=== PATIENT | female | born 1990 | race Hispanic/Latino ===

== ENCOUNTER → 2016-05-22 | Outpatient (CLI) | payer OTHER ==
--- NOTE | 2016-05-22 15:03 | RAD ---
EXAM DESCRIPTION: Abdomen radiography. CLINICAL HISTORY: Abdominal pain. COMPARISON: None. TECHNIQUE: One view. FINDINGS: Bowel gas pattern is non-obstructed. There is no obvious free intraperitoneal air. Visualized segments of the abdominal organs are unremarkable. No suspicious bone lesion or fracture is seen. IMPRESSION: Two stones overlying the left renal shadow are noted. They are linear. The largest measures approximately 6 mm x 1.5 mm in diameter. Electronically signed by: Martell Coelho MD 05/22/2016 15:02
== END ==
LOC: RAD 13:46
PROVIDERS: ATTEND Urology
DX: N20.2 Calculus of kidney with calculus of ureter (principal)

== ENCOUNTER → 2016-06-19 | Outpatient (CLI) | payer OTHER ==
--- NOTE | 2016-06-19 15:26 | CT ---
EXAM DESCRIPTION: Abdomen and pelvis CT. CLINICAL HISTORY: Renal stone followup COMPARISON: February 2016 TECHNIQUE: A noncontrast volumetric CT was acquired and displayed in multiplanar reconstructions. Note that the sensitivity of this exam is slightly diminished without contrast. FINDINGS: Left renal stones again noted. The largest measures 6 mm in diameter. The left UPJ stone has been removed or as passed. No evidence of obstruction on today's exam. Urinary bladder is unremarkable. IUD in place. The liver, spleen, bilateral adrenal glands and pancreas are stable. Small bowel is unremarkable. The appendix is normal. The colon is unremarkable. No inflammatory changes seen. Lung bases are clear. IMPRESSION: There is some variability of the number and size of left renal stones when compared to the prior. The largest on today's exam measures 6 mm in diameter. The left UPJ stone has been removed or has passed. No evidence of obstruction on today's study or ureteral stone on today's study. The right adnexal cyst has decreased considerably in size and is now difficult to visualize. It likely measures approximately 2 cm in diameter. On the prior study it measured 6.2 cm in diameter. The ground-glass opacity seen on the prior study have resolved. Electronically signed by: Martell Coelho MD 06/19/2016 15:24
== END ==
LOC: CT 08:30
PROVIDERS: ATTEND Urology
DX: N20.0 Calculus of kidney (principal)

== ENCOUNTER 2016-10-07 23:24 | Emergency (ER) | payer OTHER ==
[2016-10-07] MEDS ORDERED: ONDANSETRON ODT 8 MG TAB SL SCH (23:45)
[2016-10-07] MEDS ORDERED: ALUMINUM & MAGNESIUM HYDROXIDE 30 ML UD PO ONE (23:52)
[2016-10-08] MEDS ORDERED: KETOROLAC TROMETHAMINE INJ 30 MG/ML VIAL IM ONE (00:24)
[2016-10-08] MEDS ORDERED: SODIUM CHLORIDE 0.9% 1000ML 1,000 ML IVS ONE (00:24)
[2016-10-08] MEDS ORDERED: CIPROFLOXACIN 500 MG TAB PO ONE (00:25)
--- NOTE | 2016-10-08 00:54 | ED.PDOC ---
History of Present Illness - General Chief Complaint: Back Pain or Injury Stated Complaint: low back pain Time Seen by Provider: 10/07/16 23:36 Source: patient Exam Limitations: no limitations - History of Present Illness Initial Comments: The patient is a 26-year-old female presenting to the emergency room secondary to symptoms of abdominal discomfort starting this morning. Cramping type abdominal discomfort. Mild discomfort in her low back bilaterally. Possibly some mild frequency but no real dysuria. She has had kidney stones before and she has had urinary tract infections before. No definite constipation or diarrhea. She did have some mild nausea this morning but no real vomiting. She has had possibly a little more reflux symptoms today. She denies vaginal discharge or symptoms of recent yeast infection. Severity: moderate Improving Factors: nothing Worsening Factors: nothing Associated Symptoms: malaise, nausea/vomiting Allergies/Adverse Reactions: Allergies NO KNOWN ALLERGY Allergy (Verified 03/13/16 10:15) Home Medications: Ambulatory Orders Escitalopram Oxalate 10 mg PO DAILY 10/07/16 Zolpidem Tartrate [Ambien] 5 mg PO BEDTIME 10/07/16 Ciprofloxacin [Cipro] 500 mg PO BID #10 tab 10/08/16 Ondansetron [Zofran Odt] 4 mg PO Q4H PRN #10 tab 10/08/16 Review of Systems - Review of Systems Constitutional: States: malaise EENTM: States: no symptoms reported Respiratory: States: no symptoms reported Cardiology: States: no symptoms reported Gastrointestinal/Abdominal: States: see HPI Genitourinary: States: see HPI Musculoskeletal: States: see HPI, back pain Skin: States: no symptoms reported Neurological: States: no symptoms reported Endocrine: States: no symptoms reported All other Systems: No Change from Baseline Past Medical History (General) - Patient Medical History Hx Seizures: No Hx Stroke: No Hx Dementia: No Hx Asthma: No Hx of COPD: No Hx Cardiac Disorders: No Hx Congestive Heart Failure: No Hx Pacemaker: No Hx Hypertension: No Hx Thyroid Disease: No Hx Diabetes: No Hx Gastroesophageal Reflux: Yes Hx Renal Disease: No Hx Cancer: No Hx of HIV: No Hx Hepatitis C: No Surgical History: other - Vaccination History Hx Tetanus, Diphtheria Vaccination: Yes Hx Influenza Vaccination: Yes Hx Pneumococcal Vaccination: No Immunizations Up to Date: Yes - Social History Hx Tobacco Use: No Hx Alcohol Use: Yes - social Hx Substance Use: No Hx Depression: Yes Hx Physical Abuse: No Hx Emotional Abuse: No - Activities of Daily Living Hospice Agency (if applicable):: None - Female History Patient is a Female of Child Bearing Age (10 -59 yrs old): Yes Hx Last Menstrual Period: 02/01/13 Patient : No - IUD Expected Date of Delivery:: 11/13/13 Family Medical History - Family History Paternal Grandparents Living Status: Still Living Hx Family Stroke: Yes - Paternal grandfather has had a stroke Hx Family Diabetes: Yes Hx Family;Other: Paternal Grandmother has diabetes, unsure which type Paternal Hx Family Asthma: Yes Hx Family;Other: Father states he has asthma Maternal Grandparents Family History: No Known Hx Family Congestive Heart Failure: Yes - maternal grandfather Hx Family Hypertension: Yes - maternal grandmother Hx Family Diabetes: Yes - maternal grandmother Physical Exam - Physical Exam General Appearance: Alert, Comfortable, No apparent distress Eye Exam: bilateral normal Ears, Nose, Throat: hearing grossly normal, normal ENT inspection, normal pharynx Neck: non-tender, full range of motion, supple Respiratory: chest non-tender, lungs clear, normal breath sounds, no respiratory distress, no accessory muscle use Cardiovascular/Chest: normal peripheral pulses, regular rate, rhythm, no edema Peripheral Pulses: radial,right: 2+, radial,left: 2+, dorsalis pedis,right: 2+, dorsalis pedis,left: 2+ Gastrointestinal/Abdominal: non tender, soft Rectal Exam: deferred Back Exam: normal inspection, no CVA tenderness, no vertebral tenderness Extremity: normal range of motion, non-tender, normal inspection, no pedal edema , normal capillary refill Neurologic: alert, normal mood/affect, oriented x 3 Skin Exam: normal color Comments: Vital Signs - 24 hr 10/07/16 10/07/16 23:44 23:45 Temperature 98.1 F Pulse Rate [ 80 80 Left radial] Respiratory 18 18 Rate Blood Pressure 133/82 [Left Arm] O2 Sat by Pulse 96 Oximetry Progress - Progress Progress: 10/08/16 00:54 the patient is a 26-year-old female presenting to the emergency room secondary to abdominal symptoms likely related to hematuria. Source of hematuria is uncertain at this time as she does have a history of kidney stones and a urinary tract infection is certainly possible. The patient has received a liter of IV fluids to help with either. She has also received a dose of Toradol to help symptomatically. She can use Motrin a couple of times daily for the next day or 2 to help reduce discomfort. She does need to increase her fluid intake. She will be written for 5 days of oral ciprofloxacin in case this is coming from a urinary tract infection. If pain and symptoms worsen rather than improve, then she may require additional studies and further clinical evaluation. At this time a repeat CT scan for the possibility of a kidney stone is not warranted given the inherent risks. ER warnings were given. She should follow-up with her primary care doctor later this week. - Results/Orders Results/Orders: Laboratory Last Values Serum HCG, Qual Cancelled 10/07/16 23:52 Urine Color Yellow (Yellow) 10/07/16 23:50 Urine Appearance Sl cloudy (Clear) 10/07/16 23:50 Urine pH 7.0 (4.5-7.8) 10/07/16 23:50 Ur Specific [place] 1.020 (1.005-1.030) 10/07/16 23:50 Urine Protein Negative mg/dL 10/07/16 23:50 Urine Glucose (UA) Negative mg/dL (Negative) 10/07/16 23:50 Urine Ketones Negative mg/dL (NEGATIVE) 10/07/16 23:50 Urine Blood Moderate (Negative) H 10/07/16 23:50 Urine Nitrite Negative 10/07/16 23:50 Urine Bilirubin Negative (NEGATIVE) 10/07/16 23:50 Urine Urobilinogen 1.0 mg/dL (0.2-1.0) 10/07/16 23:50 Ur Leukocyte Esterase Negative (Negative) 10/07/16 23:50 Urine RBC 20-30 /hpf H 10/07/16 23:50 Urine WBC 1-3 /hpf 10/07/16 23:50 Ur Epithelial Cells 1-3 /hpf 10/07/16 23:50 Amorphous Sediment 1+ 10/07/16 23:50 Urine Bacteria Rare 10/07/16 23:50 Urine Mucus Trace 10/07/16 23:50 Urine HCG, Qual Negative 10/07/16 23:52 - EKG/XRAY/CT CT Ordered: No CT Interpretation Call Back: No Departure - Departure Clinical Impression: Hematuria Disposition: Discharge to Home or Self Care Condition: Fair Departure Forms: ED Discharge - Pt. Copy, Patient Portal Self Enrollment Instructions: DI for Hematuria Diet: bland diet Activity: increase activity as tolerated Referrals: Bree Schofield NP [Primary Care Provider] - 1-5 Days Prescriptions: Ciprofloxacin [Cipro] 500 mg PO BID #10 tab Ondansetron [Zofran Odt] 4 mg PO Q4H PRN #10 tab PRN Reason: Vomiting Home Medications: Ambulatory Orders Escitalopram Oxalate 10 mg PO DAILY 10/07/16 Zolpidem Tartrate [Ambien] 5 mg PO BEDTIME 10/07/16 Ciprofloxacin [Cipro] 500 mg PO BID #10 tab 10/08/16 Ondansetron [Zofran Odt] 4 mg PO Q4H PRN #10 tab 10/08/16 Additional Instructions: the patient is a 26-year-old female presenting to the emergency room secondary to abdominal symptoms likely related to hematuria. Source of hematuria is uncertain at this time as she does have a history of kidney stones and a urinary tract infection is certainly possible. The patient has received a liter of IV fluids to help with either. She has also received a dose of Toradol to help symptomatically. She can use Motrin a couple of times daily for the next day or 2 to help reduce discomfort. She does need to increase her fluid intake. She will be written for 5 days of oral ciprofloxacin in case this is coming from a urinary tract infection. If pain and symptoms worsen rather than improve, then she may require additional studies and further clinical evaluation. At this time a repeat CT scan for the possibility of a kidney stone is not warranted given the inherent risks. ER warnings were given. She should follow-up with her primary care doctor later this week.
[2016-10-08 01:42] VITALS: BP 122/86; TEMP 97.2; O2SAT 100
--- NOTE | 2016-10-08 02:36 | RAD ---
Procedure: XR ABDOMEN 2 VIEWS SUPINE ERECT Exam Date: 10/08/2016 Ordering Provider: Joey Lane Clinical Indication: lower abd pain Comparison: 06/19/2016 CT abdomen pelvis Findings: IUD in place. 6 mm calcification projecting over the lower pole the left kidney. 4 mm calcification in the left side of the pelvis may represent a phlebolith or ureteral calcification. There is no small or large bowel distention. There is no pneumoperitoneum. There is no acute skeletal abnormality. Impression: 1. Left nephrolithiasis. 2. 4 mm calcification in the left side of the pelvis may represent a phlebolith or ureteral calcification. Electronically signed by: Cuong Lou MD 10/08/2016 2:16 AM CDT
== END 2016-10-08 01:42 | disposition home or self-care (01) ==
LOC: ER 23:24
DX: R31.9 Hematuria, unspecified (principal); F32.9 Major depressive disorder, single episode, unspecified; K21.9 Gastro-esophageal reflux disease without esophagitis; Z87.442 Personal history of urinary calculi; Z79.899 Other long term (current) drug therapy
CPT/HCPCS: 74010; 81001; 81025; J1885; J7030

== ENCOUNTER → 2016-10-24 | Outpatient (CLI) | payer OTHER ==
--- NOTE | 2016-10-24 22:05 | US ---
NAME: FRAN FUENTES PROCEDURE: US GALLBLADDER ORDER DATE: 10/24/2016 11:11 AM CDT ACCESSION NUMBER: [id number] Clinical History: UNSPECIFIED ABDOMINAL PAIN Indication: Same as above Comparison: None . Technique: Camargo scale evaluation of the right upper quadrant of the abdomen was done ultrasonographically along with limited color Doppler evaluation Findings: The gallbladder wall thickness is normal and measures 2.0 mm. There is no visualization of sludge or gallstones in the gallbladder. There is no pericholecystic fluid. There is no ultrasonographically positive Silverio's sign. The common duct is normal in transverse diameter and measures 3.7 mm. There is no intraductal common duct calculus. The liver measures 14.3 centimeters in length. There are no focal liver lesions. There is no intrahepatic biliary dilatation. The pancreas , the visualized portions are unremarkable . There is no documented ascitic fluid in the evaluated right upper quadrant of the abdomen. The visualized portion of the abdominal aorta and the inferior vena cava are unremarkable. There is no documented right-sided pleural effusion. Impression: Unremarkable ultrasound of the liver, pancreas, gallbladder and the common duct Location of Interpretation: Teleradiology Electronically signed by: Jay Copeland MD 10/24/2016 10:04 PM CDT Workstation: [id number]
== END | disposition home or self-care (01) ==
LOC: YCFC.O 10:50
PROVIDERS: ATTEND Nurse Practitioner Family
DX: N20.0 Calculus of kidney (principal); R10.9 Unspecified abdominal pain

== ENCOUNTER 2016-12-07 20:48 | Emergency (ER) | payer OTHER ==
[2016-12-07] MEDS ORDERED: MAGNESIUM HYDROXIDE 30 ML UD PO ONE (21:11)
[2016-12-07] MEDS ORDERED: ONDANSETRON ODT 8 MG TAB SL ONE (21:11)
--- NOTE | 2016-12-07 21:50 | ED.PDOC ---
History of Present Illness - General Chief Complaint: GI Problem Time Seen by Provider: 12/07/16 20:58 Source: patient Exam Limitations: no limitations - History of Present Illness Initial Comments: the patient is a 26-year-old female presenting to the emergency room secondary toconstipation for 3 days and his lead to some nauseaand a few episodes of vomiting. The patient has pain across her upper back consistent with the constipation. No fever. No right upper quadrant pain. No syncope. No blood or bile in the vomitus. Timing/Duration: 4-6 hours Severity: mild Improving Factors: nothing Worsening Factors: eating Associated Symptoms: denies symptoms, loss of appetite, nausea/vomiting Allergies/Adverse Reactions: Allergies NO KNOWN ALLERGY Allergy (Verified 03/13/16 10:15) Home Medications: Ambulatory Orders Escitalopram Oxalate 10 mg PO DAILY 10/07/16 Zolpidem Tartrate [Ambien] 5 mg PO BEDTIME 10/07/16 Ciprofloxacin [Cipro] 500 mg PO BID #10 tab 10/08/16 Ondansetron [Zofran Odt] 4 mg PO Q4H PRN #10 tab 10/08/16 Ondansetron [Zofran Odt] 4 mg PO Q4H PRN #10 tab 12/07/16 Review of Systems - Review of Systems Constitutional: States: no symptoms reported EENTM: States: no symptoms reported Respiratory: States: no symptoms reported Cardiology: States: no symptoms reported Gastrointestinal/Abdominal: States: constipation, nausea, vomiting Genitourinary: States: no symptoms reported Musculoskeletal: States: no symptoms reported Skin: States: no symptoms reported Neurological: States: no symptoms reported Endocrine: States: no symptoms reported Hematologic/Lymphatic: States: no symptoms reported All other Systems: No Change from Baseline Past Medical History (General) - Patient Medical History Hx Seizures: No Hx Stroke: No Hx Dementia: No Hx Asthma: No Hx of COPD: No Hx Cardiac Disorders: No Hx Congestive Heart Failure: No Hx Pacemaker: No Hx Hypertension: No Hx Thyroid Disease: No Hx Diabetes: No Hx Gastroesophageal Reflux: Yes Hx Renal Disease: No Hx Cancer: No Hx of HIV: No Hx Hepatitis C: No Surgical History: no surgical history - Vaccination History Hx Tetanus, Diphtheria Vaccination: No Hx Influenza Vaccination: Yes Hx Pneumococcal Vaccination: No Immunizations Up to Date: Yes - Social History Hx Tobacco Use: No Hx Alcohol Use: No Hx Substance Use: No Hx Depression: Yes Hx Physical Abuse: No Hx Emotional Abuse: No - Female History Hx Last Menstrual Period: 02/01/13 Patient : No - IUD Expected Date of Delivery:: 11/13/13 Family Medical History - Family History Paternal Grandparents Living Status: Still Living Hx Family Stroke: Yes - Paternal grandfather has had a stroke Hx Family Diabetes: Yes Hx Family;Other: Paternal Grandmother has diabetes, unsure which type Paternal Hx Family Asthma: Yes Hx Family;Other: Father states he has asthma Maternal Grandparents Family History: No Known Hx Family Congestive Heart Failure: Yes - maternal grandfather Hx Family Hypertension: Yes - maternal grandmother Hx Family Diabetes: Yes - maternal grandmother Physical Exam - Physical Exam General Appearance: Alert, Comfortable, No apparent distress Eye Exam: bilateral normal Ears, Nose, Throat: hearing grossly normal Neck: full range of motion Respiratory: chest non-tender, lungs clear, normal breath sounds, no respiratory distress, no accessory muscle use Cardiovascular/Chest: normal peripheral pulses, regular rate, rhythm, no edema Peripheral Pulses: radial,right: 2+, radial,left: 2+, dorsalis pedis,right: 2+, dorsalis pedis,left: 2+ Gastrointestinal/Abdominal: non tender, soft Rectal Exam: deferred Back Exam: other - mild diffuse discomfort to palpation bilaterally just below the level of the diaphragm Extremity: normal range of motion, non-tender, normal inspection, no pedal edema , normal capillary refill Neurologic: humanities professor II-XII nml as tested, alert, normal mood/affect, oriented x 3 Skin Exam: normal color Comments: Vital Signs - 24 hr 12/07/16 12/07/16 21:06 21:07 Temperature 98.2 F Pulse Rate [ 80 80 Right radial] Respiratory 18 18 Rate Blood Pressure 130/84 [Right Arm] O2 Sat by Pulse 98 Oximetry Progress - Progress Progress: 12/07/16 21:50 the patient is a 26-year-old female presented to emergency room with constipation and resultant nausea and vomiting. the patient was given a dose of Zofran and a dose of milk of magnesia here. She needs to increase her fluid intake. Ambulation is encouraged to stimulate the bowel. MiraLAX can be taken daily as needed to prevent constipation. Additionally milk of magnesia can be used twice monthly if needed for constipation. She needs to take a high-fiber diet. Zofran will be written for as needed use to prevent vomiting. ER warnings were given for any significant worsening. She can follow-up with her primary care doctor next week. Departure - Departure Clinical Impression: Constipation Qualifiers: Constipation type: unspecified constipation type Qualified Code(s): K59.00 - Constipation, unspecified Disposition: Discharge to Home or Self Care Condition: Fair Departure Forms: ED Discharge - Pt. Copy, Patient Portal Self Enrollment Instructions: DI for Constipation Diet: other - High-fiber diet Activity: increase activity as tolerated Referrals: Bree Schofield NP [Primary Care Provider] - 1-5 Days Prescriptions: Ondansetron [Zofran Odt] 4 mg PO Q4H PRN #10 tab PRN Reason: Vomiting Home Medications: Ambulatory Orders Escitalopram Oxalate 10 mg PO DAILY 10/07/16 Zolpidem Tartrate [Ambien] 5 mg PO BEDTIME 10/07/16 Ciprofloxacin [Cipro] 500 mg PO BID #10 tab 10/08/16 Ondansetron [Zofran Odt] 4 mg PO Q4H PRN #10 tab 10/08/16 Ondansetron [Zofran Odt] 4 mg PO Q4H PRN #10 tab 12/07/16 Additional Instructions: the patient is a 26-year-old female presented to emergency room with constipation and resultant nausea and vomiting. the patient was given a dose of Zofran and a dose of milk of magnesia here. She needs to increase her fluid intake. Ambulation is encouraged to stimulate the bowel. MiraLAX can be taken daily as needed to prevent constipation. Additionally milk of magnesia can be used twice monthly if needed for constipation. She needs to take a high-fiber diet. Zofran will be written for as needed use to prevent vomiting. ER warnings were given for any significant worsening. She can follow-up with her primary care doctor next week.
[2016-12-07] MEDS ORDERED: KETOROLAC TROMETHAMINE INJ 30 MG/ML VIAL IM ONE (21:59)
[2016-12-07 22:15] VITALS: BP 129/74; TEMP 97.9; O2SAT 96
== END 2016-12-07 22:15 | disposition home or self-care (01) ==
LOC: ER 20:48
DX: K59.00 Constipation, unspecified (principal); R11.2 Nausea with vomiting, unspecified; K21.9 Gastro-esophageal reflux disease without esophagitis; F32.9 Major depressive disorder, single episode, unspecified

== ENCOUNTER 2017-03-19 16:06 | Emergency (ER) | payer OTHER ==
--- NOTE | 2017-03-19 17:06 | ED.PDOC ---
History of Present Illness - General Chief Complaint: ENT Problem Stated Complaint: sore throat Time Seen by Provider: 03/19/17 16:57 Source: patient, RN notes reviewed, Vital Signs reviewed Exam Limitations: no limitations - History of Present Illness Initial Comments: Patient comes in with c/o sore throat and fever that started 2 days ago. Son here with same symptoms X 4 days. Temp to 100 at home. +chills. Hurts to swallow. TORO. Bilateral ear pain. Timing/Duration: gradual Severity: moderate EENT Location: ear (R), ear (L), throat Prearrival Treatment: over the counter meds Improving Factors: medication Worsening Factors: eating Associated Symptoms: fever, malaise, sore throat Allergies/Adverse Reactions: Allergies NO KNOWN ALLERGY Allergy (Verified 03/13/16 10:15) Home Medications: Ambulatory Orders Escitalopram Oxalate 10 mg PO DAILY 10/07/16 Zolpidem Tartrate [Ambien] 5 mg PO BEDTIME 10/07/16 Ciprofloxacin [Cipro] 500 mg PO BID #10 tab 10/08/16 Ondansetron [Zofran Odt] 4 mg PO Q4H PRN #10 tab 10/08/16 Ondansetron [Zofran Odt] 4 mg PO Q4H PRN #10 tab 12/07/16 Azithromycin [Zithromax] 500 mg PO DAILY #4 tab 03/19/17 Review of Systems - Review of Systems Constitutional: States: see HPI, chills, fever, malaise EENTM: States: see HPI, ear pain, throat pain, throat swelling Respiratory: States: no symptoms reported Cardiology: States: no symptoms reported Gastrointestinal/Abdominal: States: no symptoms reported Musculoskeletal: States: no symptoms reported Skin: States: no symptoms reported Neurological: States: headache All other Systems: No Change from Baseline Past Medical History (General) - Patient Medical History Hx Seizures: No Hx Stroke: No Hx Dementia: No Hx Asthma: No Hx of COPD: No Hx Cardiac Disorders: No Hx Congestive Heart Failure: No Hx Pacemaker: No Hx Hypertension: No Hx Thyroid Disease: No Hx Diabetes: No Hx Gastroesophageal Reflux: Yes Hx Renal Disease: No Hx Cancer: No Hx of HIV: No Hx Hepatitis C: No Surgical History: no surgical history - Vaccination History Hx Tetanus, Diphtheria Vaccination: No Hx Influenza Vaccination: Yes Hx Pneumococcal Vaccination: No - Social History Hx Tobacco Use: No Hx Alcohol Use: No Hx Substance Use: No Hx Depression: Yes Hx Physical Abuse: No Hx Emotional Abuse: No - Female History Hx Last Menstrual Period: 02/01/13 Patient : No - IUD Expected Date of Delivery:: 11/13/13 Family Medical History - Family History Paternal Grandparents Living Status: Still Living Hx Family Stroke: Yes - Paternal grandfather has had a stroke Hx Family Diabetes: Yes Hx Family;Other: Paternal Grandmother has diabetes, unsure which type Paternal Hx Family Asthma: Yes Hx Family;Other: Father states he has asthma Maternal Grandparents Family History: No Known Hx Family Congestive Heart Failure: Yes - maternal grandfather Hx Family Hypertension: Yes - maternal grandmother Hx Family Diabetes: Yes - maternal grandmother Physical Exam - Physical Exam General Appearance: Alert, Comfortable, No apparent distress, Well Developed, Well Groomed, Well Hydrated, Well Nourished Ear Exam: bilateral ear: auricle normal, canal normal, TM normal Nasal Exam: normal inspection Throat Exam: pharynx swelling, pharynx tenderness, tonsillar exudate, tonsillar swelling, voice changes - muffled Neck: full range of motion, supple, lymphadenopathy (R) - tender, lymphadenopathy (L) - tender Cardiovascular/Respiratory: regular rate, rhythm, no M/R/G, normal breath sounds , no respiratory distress Neurologic: alert, normal mood/affect, oriented x 3 Skin Exam: normal color, warm/dry Comments: Vital Signs 03/19/17 16:15 Temperature 99.0 F Pulse Rate [ 96 H left brachial] Respiratory 16 Rate Blood Pressure 150/96 [left brachial] O2 Sat by Pulse 98 Oximetry Progress - Results/Orders Results/Orders: Laboratory Tests 03/19/17 16:53 Group A Strep DNA Positive Departure - Departure Clinical Impression: Streptococcal sore throat Time of Disposition: 17:18 Disposition: Discharge to Home or Self Care Condition: Good Departure Forms: ED Discharge - Pt. Copy, Patient Portal Self Enrollment Instructions: DI for Strep Throat Diet: resume usual diet Activity: increase activity as tolerated Referrals: Amy Connelly BACK WEDGER [Primary Care Provider] - 1-2 Weeks Prescriptions: Azithromycin [Zithromax] 500 mg PO DAILY #4 tab Home Medications: Ambulatory Orders Escitalopram Oxalate 10 mg PO DAILY 10/07/16 Zolpidem Tartrate [Ambien] 5 mg PO BEDTIME 10/07/16 Ciprofloxacin [Cipro] 500 mg PO BID #10 tab 10/08/16 Ondansetron [Zofran Odt] 4 mg PO Q4H PRN #10 tab 10/08/16 Ondansetron [Zofran Odt] 4 mg PO Q4H PRN #10 tab 12/07/16 Azithromycin [Zithromax] 500 mg PO DAILY #4 tab 03/19/17
[2017-03-19] MEDS ORDERED: AZITHROMYCIN 250 MG TAB PO ONE (17:17)
[2017-03-19 17:52] VITALS: BP 140/93; TEMP 98.9; O2SAT 99
== END 2017-03-19 17:51 | disposition home or self-care (01) ==
LOC: ER 16:06
DX: J02.0 Streptococcal pharyngitis (principal); K21.9 Gastro-esophageal reflux disease without esophagitis
CPT/HCPCS: 87651; Q0144